=== PATIENT | male | born 1945 | race Caucasian/White ===

== ENCOUNTER 2020-12-10 08:52 | Day surgery (SDC) | payer MEDICARE ==
[2020-12-03 15:15] LABS: BASOPHILS % (AUTO) 0.7 % (0-1); EOSINOPHILS # (AUTO) 0.1 X10'3 (0-0.9); EOSINOPHILS % (AUTO) 2.1 % (0-6); LYMPHOCYTES # (AUTO) 1.2 X10'3 (1.1-4.8); LYMPHOCYTES % (AUTO) 17.3 % (21-51); MEAN CORPUSCULAR HEMOGLOBIN 34.6 PG (27.0-31.0); MEAN CORPUSCULAR HGB CONC 33.9 g/dL (33.0-36.5); MEAN CORPUSCULAR VOLUME 101.9 FL (78-98); MEAN PLATELET VOLUME 7.3 FL (7.4-10.4); MONOCYTES # (AUTO) 0.7 X10'3 (0-0.9); MONOCYTES % (AUTO) 10.6 % (2-12); NEUTROPHILS # (AUTO) 4.8 X10'3 (1.8-7.7); NEUTROPHILS % (AUTO) 69.3 % (42-75); PRE OP HEMOGLOBIN 15.3 g/dL (14.0-17.9); PRE OP PLATELET COUNT 188 X10'3 (140-440); RED BLOOD COUNT 4.42 X10'6 (4.70-6.10); RED CELL DISTRIBUTION WIDTH 13.4 % (11.5-14.5)
[2020-12-03 15:41] LABS: ALBUMIN 3.7 G/DL (3.4-5.0); ALBUMIN/GLOBULIN RATIO 1.1 (1.1-1.5); ALKALINE PHOSPHATASE 41 IU/L (46-116); BLOOD UREA NITROGEN 32 MG/DL (7-18); BUN/CREATININE RATIO 13.9 (5.4-32.0); CALCIUM 9.4 MG/DL (8.5-10.1); CHLORIDE 103 MMOL/L (99-107); CREATININE 2.31 MG/DL (0.60-1.10); PRE OP ALT 17 U/L (30-65); PRE OP ANION GAP 13 (8-16); PRE OP AST 23 U/L (10-37); PRE OP BILIRUB, TOTAL 0.8 MG/DL (0.0-1.0); PRE OP GLUCOSE 103 MG/DL (70-104); PRE OP POTASSIUM 3.9 MMOL/L (3.4-5.1); PRE OP SODIUM 138 MMOL/L (135-145); TOTAL CARBON DIOXIDE 22.5 MMOL/L (24-32); eGFR 28 ML/MIN
[~2020-12-10] VITALS: Ht 175.3 cm; Wt 89.7 kg
[2020-12-10] VITALS (12 sets, daily range): BP systolic 111–150; BP diastolic 63–72
[~2020-12-10 08:52] MED LIST: AMLO-315 PO; BENA40TA73 PO; BUPIVAcaine/PF 2.5 mg/ml (0.25%) 30ml vial ONE; FENO134C PO; FLO0.4C PO; HYOS0.3737 PO; LIDOcaine 1% 30ml preserv. free vial ONE; SILD100T PO; TEST200V10 IM; cefazolin/dext.iso 2gm/100ml IV ONE; famotidine 20mg tablet PO ONE; ringers solution, lacted 1,000 ML IV SCH
[2020-12-10] MEDS ORDERED: fentaNYL /PF 50mcg/ml 5ml ampule ONE (10:29)
[2020-12-10] MEDS ORDERED: midazolam 1 mg/ML 2ml injection ONE (10:29)
[2020-12-10] MEDS ORDERED: LIDOcaine 2% 5ml jelly ONE (10:31)
[2020-12-10] MEDS ORDERED: rocuronium 10mg/ml inj IV ONE (11:00)
[2020-12-10] MEDS ORDERED: propofol inj 20 ML IV ONE (11:00)
[2020-12-10] MEDS ORDERED: ondansetron/PF 4mg/2ml inj ONE (11:00)
[2020-12-10] MEDS ORDERED: dexamethasone sod phosphate 4mg/ml inj. ONE (11:00)
[2020-12-10] MEDS ORDERED: glycopyrrolate 0.2mg/ml inj ONE (11:00)
[2020-12-10] MEDS ORDERED: LIDOcaine 2% (20mg/ml) 5ml vial ONE (11:00)
[2020-12-10] MEDS ORDERED: neostigmine methylsulfate 1 MG/ML 10ml vial ONE (11:00)
[2020-12-10] MEDS ORDERED: acetaminophen 1,000mg/100ml IV 100 ML IV PRN (11:35)
[2020-12-10] MEDS ORDERED: labetalol 20mg/4ml (5mg/ml) syringe IV PRN (11:35)
[2020-12-10] MEDS ORDERED: hydrALAZINE 20mg/ml inj. IV PRN (11:35)
[2020-12-10] MEDS ORDERED: ringers solution, lacted 1,000 ML IV SCH (11:35)
[2020-12-10] MEDS ORDERED: meperidine/PF 25mg/ml syringe IV PRN ×2 (11:35)
[2020-12-10] MEDS ORDERED: ketorolac trometh. 30mg/ml inj. IV ONE (11:35)
[2020-12-10] MEDS ORDERED: morphine 4 MG/ML inj SYRINge IV PRN (11:35)
[2020-12-10] MEDS ORDERED: proCHLORperazine 10 MG/2 ml inj IV PRN (11:35)
[2020-12-10] MEDS ORDERED: morphine 2 MG/ML inj. syringe IV PRN (11:35)
[2020-12-10] MEDS ORDERED: ondansetron/PF 4mg/2ml inj IV PRN (11:35)
[2020-12-10] MEDS ORDERED: 0.9 % SODIUM CHLORIDE 10 ML VIAL ONE (11:37)
[2020-12-10] MEDS ORDERED: ePHEDrine 50MG/ML INJ. ONE (11:37)
[2020-12-10] MEDS ORDERED: HYDROcodone/acetaminophen 5mg/325mg tablet PO PRN ×2 (11:50)
--- NOTE | 2020-12-10 11:50 | NUR ---
ADMITTED TO PACU FROM OR ACCOMPANIED BY ANESTHESIA. INTIAL PHYSICAL ASSESSMENT DONE AND RECORDED. REPORT RECEIVED FROM ANESTHESIA.
--- NOTE | 2020-12-10 13:30 | NUR ---
DISCHARGE CRITERIA MET, DISCHARGE INSTRUCTIONS GIVEN, DEMONSTRATES VERBAL UNDERSTANDING. DISCHARGED HOME IN GOOD CONDITION.
[2020-12-10] MEDS ORDERED: HYDROcodone/acetaminophen 10/325mg tab PO ONE (13:35)
== END 2020-12-10 15:16 | disposition home or self-care (01) ==
LOC: PAS 08:52
PROVIDERS: ATTEND Surgery
DX: K40.90 Unilateral inguinal hernia, without obstruction or gangrene, not specified as recurrent (principal); I10 Essential (primary) hypertension; N40.0 Benign prostatic hyperplasia without lower urinary tract symptoms; G47.33 Obstructive sleep apnea (adult) (pediatric); Z89.022 Acquired absence of left finger(s); Z98.890 Other specified postprocedural states; Z79.899 Other long term (current) drug therapy
CPT/HCPCS: 36415; 49650; 80053; 82948; 85025; 93005; C1781; J1100; J2001; J2250; J2405; J2704; J2710; J3010; J3490; A4215; A4618; J7120